=== PATIENT | male | born 1995 | race Caucasian/White ===

== ENCOUNTER 2018-08-02 18:43 | Emergency (ER) | payer BC, SELFPAY ==
[2018-08-02 18:44] VITALS: BP 152/77; PULSE 99; RESP 18; TEMP 36.6; O2SAT 97; BMI 32.5
--- NOTE | 2018-08-02 18:58 | RAD_ITS ---
STUDY: X-RAY - LEFT SHOULDER REASON FOR EXAM: Male, 23 years old. Pain. Recent injury. TECHNIQUE: 4 view(s) of the shoulder. COMPARISON: None. FINDINGS: Normal glenohumeral articulation. Normal acromioclavicular joint. Normal acromion. Normal humeral head and visualized proximal humerus. The soft tissue structures are unremarkable. There is no demonstrated fracture. Normal visualized pulmonary apex. RAD/Shoulder min 2 Views IMPRESSION: Normal x-ray examination of the shoulder. Electronically Signed: Ralf Garcia MD at 19:16 EDT , Service support ,
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
[2018-08-02 19:37] VITALS: BP 112/74; PULSE 86; RESP 18; O2SAT 100
== END 2018-08-02 19:38 | disposition home or self-care (01) ==
LOC: ED 19:37
PROVIDERS: Emergency Provider Emergency Medicine; Family Provider Family Medicine; PCP Family Medicine
DX: M25.512 Pain in left shoulder (principal)
CPT/HCPCS: 73030; 99282